=== PATIENT | male | born 1955 | race African-American/Black ===

== ENCOUNTER 2019-04-05 19:38 | Emergency (ER) | payer MEDICARE ==
[2019-04-05 19:42] VITALS: Wt 59.1 kg
[2019-04-05] MEDS ORDERED: SYMBICORT 16010.2 GM INH (19:43)
[2019-04-05] MEDS ORDERED: KLONOPIN0.5 MG PO (19:44)
[2019-04-05] MEDS ORDERED: DILAUDID8 MG PO (19:44)
[2019-04-05] MEDS ORDERED: COLACE50 MG/5 ML PO (19:45)
[2019-04-05] MEDS ORDERED: DURAGESIC1 PATCH .3 TRANSDERM (19:45)
[2019-04-05] MEDS ORDERED: CYMBALTA60 MG PO (19:45)
[2019-04-05] MEDS ORDERED: BUTALB-APAP-CA1 EACH PO (19:46)
[2019-04-05] MEDS ORDERED: CLARITIN 10 MG10 MG PO (19:46)
[2019-04-05] MEDS ORDERED: PREVACID30 MG PO (19:46)
[2019-04-05] MEDS ORDERED: PHENERGAN25 M1 PO (19:47)
[2019-04-05] MEDS ORDERED: MEGACE40 MG PO (19:47)
[2019-04-05] MEDS ORDERED: MYLANTA / MAALO30 ML PO (19:47)
[2019-04-05] MEDS ORDERED: MELATONIN 3 MG1 TAB PO (19:47)
[2019-04-05] MEDS ORDERED: ZANAFLEX4 MG PO (19:48)
[2019-04-05] MEDS ORDERED: REGLAN10 MG PO (19:48)
[2019-04-05] MEDS ORDERED: SYNTHROID25 MCG PO (19:48)
[2019-04-05 22:40] VITALS: BP 108/72
== END 2019-04-05 22:40 | disposition home or self-care (01) ==
LOC: D.ER 19:38
DX: K94.23 Gastrostomy malfunction (principal)

== ENCOUNTER 2019-05-20 14:18 | Emergency (ER) | payer MEDICARE ==
[~2019-05-20] VITALS: Ht 172.7 cm; Wt 68.2 kg
[~2019-05-20 14:18] MED LIST: BUTALB-APAP-CA1 EACH PO; CLARITIN 10 MG10 MG PO; COLACE50 MG/5 ML PO; CYMBALTA60 MG PO; DILAUDID8 MG PO; DURAGESIC1 PATCH .3 TRANSDERM; KLONOPIN0.5 MG PO; MEGACE40 MG PO; MELATONIN 3 MG1 TAB PO; MYLANTA / MAALO30 ML PO; PHENERGAN25 M1 PO; PREVACID30 MG PO; REGLAN10 MG PO; SYMBICORT 16010.2 GM INH; SYNTHROID25 MCG PO; ZANAFLEX4 MG PO
[2019-05-20 14:25] VITALS: Ht 172.7 cm; Wt 68.2 kg
[2019-05-20 19:13] VITALS: BP 118/77
== END 2019-05-20 19:13 | disposition home or self-care (01) ==
LOC: D.ER 14:18
DX: K94.23 Gastrostomy malfunction (principal); E03.9 Hypothyroidism, unspecified; J44.9 Chronic obstructive pulmonary disease, unspecified